=== PATIENT | male | born 1960 | race African-American/Black ===

== ENCOUNTER 2016-04-23 20:01 | Emergency (ER) | payer MEDICAID ==
[~2016-04-23] VITALS: Ht 185.4 cm; Wt 77.1 kg
[2016-04-23 20:33] VITALS: BP 136/87
== END 2016-04-23 23:19 | disposition left against medical advice (07) ==
LOC: ER 20:07
DX: R22.9 Localized swelling, mass and lump, unspecified (principal); Z53.21 Procedure and treatment not carried out due to patient leaving prior to being seen by health care provider

== ENCOUNTER 2016-04-24 04:26 | Emergency (ER) | payer MEDICAID ==
[~2016-04-24] VITALS: Ht 185.4 cm; Wt 77.1 kg
[2016-04-24 08:14] VITALS: BP 127/86
[2016-04-24] MEDS ORDERED: LIDOCAINE W/ EPINEPHRINE 1% 20ML VIAL ID ONE (08:15)
== END 2016-04-24 09:35 | disposition home or self-care (01) ==
LOC: ER 04:36
DX: L02.214 Cutaneous abscess of groin (principal)
CPT/HCPCS: 10060

== ENCOUNTER 2020-06-20 17:59 | Emergency (ER) | payer MEDICAID ==
[~2020-06-20] VITALS: Ht 185.4 cm; Wt 72.6 kg
[2020-06-20 18:55] LABS: Basophils # (auto) 0.1 10 ^3/uL (0-0.2); Basophils % (auto) 0.9 % (0.0-2.0); Eosinophils # (auto) 0.1 10 ^3/uL (0-0.8); Eosinophils % (auto) 1.5 % (0.0-7.0); Hematocrit 41.9 % (41.0-53.0); Hemoglobin 13.9 g/dL (13.5-17.5); Lymphocytes % (auto) 37.5 % (10.0-50.0); Mean Corpuscular Hemoglobin 28.7 pg (28.0-32.0); Mean Corpuscular Hgb Conc. 33.1 g/dL (32.0-36.0); Mean Corpuscular Volume 86.7 fL (80.0-100.0); Monocytes # (auto) 0.4 10 ^3/uL (0-1.3); Monocytes % (auto) 8.1 % (0.0-12.0); Neutrophils # (auto) 2.8 10 ^3/uL (1.6-8.6); Nucleated Red Blood Cells % 0.2 %; Red Blood Cells 4.83 10^6/uL (4.5-5.90); Red Cell Distribution Width 15.3 % (11.8-14.3); White Blood Cell 5.3 10^3/uL (4.4-10.8)
[2020-06-20 19:08] LABS: INR 1.12 (0.9-1.15); Partial Thromboplastin Time 24.7 sec (23.0-31.2)
[2020-06-20 19:10] LABS: Albumin 2.7 g/dL (3.4-5.0); BUN/Creatinine Ratio 17.6; Calcium 8.2 mg/dL (8.5-10.1); Potassium 4.5 mmol/L (3.5-5.1)
[2020-06-20 19:15] LABS: Bilirubin, Total 0.4 mg/dL (0.2-1.0); Total Protein 6.7 g/dL (6.4-8.2)
[2020-06-20] MEDS ORDERED: IOHEXOL 350 MG/ML 100ML IJ ONE (21:25)
[2020-06-20] MEDS ORDERED: FUROSEMIDE 20 MG/2 ML VIAL IV ONE (21:30)
[2020-06-20] MEDS ORDERED: ENOXAPARIN SOD 80 MG/0.8ML SYRINGE SC ONE (21:30)
[2020-06-20 22:17] LABS: Urine Bacteria NONE SEEN /hpf (None Seen); Urine Blood Negative /uL (Negative); Urine Specific Gravity 1.022 (1.001-1.035); Urine WBC 3 /hpf (0 - 3)
[2020-06-20 22:25] VITALS: BP 128/91
[2020-06-20] MEDS ORDERED: MORPHINE SULFATE INJECTION 2 MG/ML SYRG IV PRN (23:00)
[2020-06-20] MEDS ORDERED: TEMAZEPAM 15 MG CAP PO PRN (23:00)
[2020-06-20] MEDS ORDERED: ACETAMINOPHEN 325 MG TAB PO PRN (23:00)
[2020-06-20] MEDS ORDERED: NITROGLYCERIN 0.4 MG SL TAB SL PRN (23:00)
[2020-06-20] MEDS ORDERED: ONDANSETRON HCL 4 MG/2 ML VIAL IV PRN (23:00)
[2020-06-20] MEDS ORDERED: CARVEDILOL 3.125 MG TAB PO ONE (23:00)
[2020-06-20] MEDS ORDERED: cloNIDine HCL 0.1 MG TAB PO PRN (23:00)
[2020-06-21] MEDS ORDERED: CARVEDILOL 3.125 MG TAB PO SCH (10:00)
[2020-06-21] MEDS ORDERED: FUROSEMIDE 40 MG TAB PO SCH (10:00)
[2020-06-21] MEDS ORDERED: FAMOTIDINE 20 MG TAB PO SCH (10:00)
[2020-06-21] MEDS ORDERED: ASPirin 81 mg TAB PO SCH (10:00)
[2020-06-21] MEDS ORDERED: ENOXAPARIN SOD 40 MG/0.4 ML SYRINGE SC SCH (10:00)
[2020-06-21] MEDS ORDERED: ATORVASTATIN 20 MG TAB PO SCH (22:00)
== END 2020-06-20 23:20 | disposition left against medical advice (07) ==
LOC: ER 18:01 → UNDOADMIN 22:54 → TELE 22:54 → UNDODISIN 23:20 → TELE 23:20
DX: I21.4 Non-ST elevation (NSTEMI) myocardial infarction (principal); I50.9 Heart failure, unspecified; R79.1 Abnormal coagulation profile; R07.89 Other chest pain; Z20.822 Contact with and (suspected) exposure to COVID-19; Z53.29 Procedure and treatment not carried out because of patient's decision for other reasons
CPT/HCPCS: 36415; 71045; 71275; 80053; 81001; 83880; 84484; 85025; 85379; 85610; 85730; 87426; 93005; 93970; 96372; 96374; 99285; J1650; J1940; Q9967; G0378